=== PATIENT | female | born 1965 | race Caucasian/White ===

== ENCOUNTER → 2020-10-31 10:00 | Outpatient (CLI) | payer OTHER, SELFPAY ==
[2020-10-31 10:34] LABS: Add Manual Diff / Slide Review NO; Basophils Absolute Auto 100 /uL (0-100); Eosinophils Absolute Auto 100 /uL (0-450); Eosinophils Percent Auto 1.9 % (2-4); Hematocrit 40.4 % (36-46); Hemoglobin 13.9 g/dL (12.0-16.0); Lymphocytes Absolute Auto 1700 /uL (1100-4500); Lymphocytes Percent Auto 24.6 % (25-40); Mean Corpuscular HGB Conc 34.4 % (30-36); Mean Corpuscular Hemoglobin 32.4 PG (26-34); Mean Corpuscular Volume 94.2 fL (80-100); Monocytes Absolute Auto 500 /uL (0-900); Neutrophils Absolute Auto 4600 /uL (1500-7000); Neutrophils Percent Auto 65.5 % (50-75); Platelet Count 297 X10^3/uL (150-400); Red Blood Cell Count 4.28 X10^6/uL (4.0-5.2); Red Cell Distribution Width 12.4 % (11.6-14.8)
[2020-10-31 11:07] LABS: Blood Urea Nitrogen 15 mg/dL (7-17); Calcium 9.2 mg/dL (8.4-10.2); Carbon Dioxide 31 mmol/L (22-32); Chloride 106 mmol/L (98-107); Cholesterol 217 mg/dL (140-199); Estimated Glomerular Filt Rate > 60.0 mL/min (>60); Glucose 96 mg/dL (70-100); HDL Cholesterol 50 mg/dL (40-60); HEMOLYSIS < 15 (0-50); LDL Cholesterol Calculated 134 mg/dL (<100); Potassium 4.3 mmol/L (3.4-5.1); Sodium 141 mmol/L (137-145); Triglycerides 166 mg/dL (35-150)
[2020-10-31 11:17] LABS: Vitamin D 25 Hydroxy (D3) 69.4 ng/mL (30.0-100.0)
[2020-10-31 11:18] LABS: Free T3, Triiodothyronine Free 3.18 pg/mL (2.77-5.27); Free T4, Direct Thyroxine 0.87 ng/dL (0.78-2.19)
[2020-10-31 11:32] LABS: Thyroid Stimulating Hormone 1.85 uIU/mL (0.47-4.68)
== END ==
PROVIDERS: PCP Family Medicine; Referring Provider Family Medicine; Visit Provider Family Medicine
DX: E03.9 Hypothyroidism, unspecified (principal); E55.9 Vitamin D deficiency, unspecified; Z12.39 Encounter for other screening for malignant neoplasm of breast; Z13.220 Encounter for screening for lipoid disorders
CPT/HCPCS: 36415; 80048; 80061; 82306; 84439; 84443; 84481; 85025

== ENCOUNTER → 2021-03-30 09:50 | Outpatient (CLI) | payer OTHER, SELFPAY ==
[2021-03-30 12:25] LABS: COVID19 -Nasal RAPID Negative (Negative)
== END ==
PROVIDERS: PCP Family Medicine; Visit Provider Surgery
DX: Z01.812 Encounter for preprocedural laboratory examination (principal); Z20.822 Contact with and (suspected) exposure to COVID-19
CPT/HCPCS: 87635; C9803

== ENCOUNTER 2021-03-31 08:10 | Day surgery (SDC) | payer OTHER, SELFPAY ==
[2021-03-27 14:44] VITALS: BMI 35.2
[2021-03-31] VITALS (9 sets, daily range): BP systolic 118–136; BP diastolic 74–84; PULSE 61–85; RESP 10–16; TEMP 36.5–36.6; O2SAT 95–100; BMI 35.2
--- NOTE | 2021-03-31 08:47 | PM.HP.1 ---
History of Present Illness History of Present Illness Date Patient Seen: 03/31/21 Time Patient Seen: 08:47 Chief complaint: EXCISIONAL HEMORRHOIDECTOMY Narrative: 55-year-old healthy female here for excisional hemorrhoidectomy today. No interval changes in health. Patient History Medical History Actinic keratoses Chicken pox (~1989) Depression (~1982) Eczema of both external ears Hot flashes Hyperlipidemia, mixed Hypothyroidism (acquired) (~2019) Internal hemorrhoid Kidney stones (~1989) Physical exam Screening for breast cancer Vitamin D deficiency Surgical History Anesthesia History of bilateral breast reduction surgery (~2014) History of hysterectomy (~2013) Status post excision of lipoma (~2009) Family & Social History Family History Father History of heart disease Mother Hyperlipidemia Grandfather Cancer Social History: household members spouse,family Tobacco & Substance use: Smoking Status Never smoker alcohol intake never Substance Use Type marijuana Meds Home Medications and Allergies Home Medications Medication Instructions Recorded Confirmed Type cetirizine 10 mg tablet 10 mg PO DAILY 10/31/20 03/31/21 History fluorouracil 5 % topical cream 1 applic TOPICAL BID #40 g 10/31/20 03/27/21 Rx ibuprofen 400 mg tablet 400 mg PO Q8H PRN 10/31/20 03/27/21 History multivitamin 1 tab PO DAILY 10/31/20 03/31/21 History probiotics 1 tab PO DAILY 10/31/20 03/31/21 History ciprofloxacin 0.3 %-dexamethasone 4 drp OTIC (EAR) BID #7.5 ml 11/04/20 03/31/21 Rx 0.1 % ear drops,suspension venlafaxine 75 mg capsule,extended 75 mg PO DAILY #90 cap 01/02/21 03/31/21 Rx release 24 hr thyroid (pork) 30 mg tablet 45 mg PO DAILY #135 tab 02/26/21 03/31/21 Rx zolpidem 10 mg tablet 10 mg PO BEDTIME PRN #30 tab 02/26/21 03/27/21 Rx Allergies Allergy/AdvReac Type Severity Reaction Status Date / Time oxycodone [From Percocet] AdvReac Nausea Verified 03/31/21 08:24 Review of Systems Review of Systems ROS: Yes All systems reviewed with the patient and are negative except as otherwise documented Exam Vital Signs (past 8 hours): - 03/31/21 08:38 Temperature 97.7 F Pulse Rate 61 Respiratory Rate 16 Blood Pressure 126/83 Pulse Oximetry 98 Oxygen Delivery Method Room Air Oxygen Flow Rate 0 Narrative Exam Narrative: GENERAL-well developed adult woman, no acute distress HEENT-no scleral icterus, hearing intact NECK-no JVD, trachea midline CVS- regular rate, no peripheral edema RESP-unlabored respiratory effort, no audible wheezing GI-soft, nontender nondistended MSK-no cyanosis or clubbing, extremities without deformity SKIN-warm, dry NEURO-alert and oriented, no focal deficits PYSCH-Appropriate mood and affect Assessment & Plan Assessment & Plan narrative: 55-year-old healthy woman here for excisional hemorrhoidectomy. Technical details of the procedure were again discussed with the patient. Operative risks including bleeding, infection, incontinence, recurrence, pain were discussed. Her questions have been answered and she is in agreement with this plan.
[2021-03-31] MEDS: LACTATED RINGERS 1,000 ML 100 ML IV (08:49)
--- NOTE | 2021-03-31 09:30 | SUR.OPER ---
Prone on padded OR bed, head in foam head support, gel chest rolls, gel pad under knees, pillow under lower legs, toes free of pressure, arms secured on padded arm boards at <90 degrees abduction. Safety belt at thigh.
[2021-03-31] MEDS: BUPIVACAINE LIPOSOME 266 MG/20 ML VIAL INJ (09:34)
[2021-03-31] MEDS: BUPIVACAINE 0.25% (PF) VIAL 30 ML INJ (09:34)
[2021-03-31] MEDS: DIBUCAINE 1% OINT 28 GM 1 APPLIC TOP (09:35)
--- NOTE | 2021-03-31 09:57 | PM.OP.1 ---
Operative Date/Time/Diagnoses Date of procedure: 03/31/21 Time of procedure: 09:57 Pre-op diagnosis: Prolapsing internal hemorrhoids Post-op diagnosis: same Procedure & Clinicians Procedure: Excisional hemorrhoidectomy Same procedure as scheduled: Yes Indications: Prolapsing internal hemorrhoids Surgeon: Carroll Quesada Click Yes if Unassisted: Yes Anesthesia Type: General Operative Notes Findings: Right anterior grade 2 internal hemorrhoid with external component Specimen(s): none sent Estimated Blood Loss (mL): 20 Procedure in detail: The patient was brought to the operating room placed supine on the table. Bilateral lower extremity compression devices were applied. General anesthesia was induced and they were intubated with an endotracheal tube. They were then placed into prone position and appropriately padded. They were then prepped and draped in usual sterile fashion. Time-out was performed. Rectal block was performed by injecting 20 mL of Exparel into the intersphincteric groove. An internal examination of the anal canal was made. The right anterior hemorrhoid pedicle freely prolapse and had an external component to it as well. The remaining tissue within the anal canal was unremarkable. The right anterior pedicle was grasped elevated and excised with electrocautery off the internal sphincter. The vascular pedicle was ligated and the mucosal defect was closed using 0 Vicryl suture. Hemostasis was checked. Wound was irrigated with saline. Gelfoam coated in Dibucaine ointment 1% was then placed into the anal canal. Sponge and instrument counts were correct at the end of the procedure. They emerged from anesthesia were extubated and transferred to the postoperative care unit in stable condition. Complications: none Post-operative Condition: stable Disposition: same day surgery
[2021-03-31] MEDS: HYDROCODONE/ACET 5/325 TABLET 1 TAB PO (10:11)
[2021-03-31] MEDS: ONDANSETRON 4 MG/2 ML INJ IV (10:11)
== END 2021-03-31 10:42 | disposition home or self-care (01) ==
PROVIDERS: PCP Family Medicine; Referring Provider Surgery; Visit Provider Surgery
PROC: (CPT 46255; principal; 2021-03-31 09:15)
DX: K64.8 Other hemorrhoids (principal); E03.9 Hypothyroidism, unspecified; E78.2 Mixed hyperlipidemia
CPT/HCPCS: 46255; C9290; J1100; J2250; J2405; J2704; J3010

== ENCOUNTER → 2021-04-07 16:14 | Outpatient (CLI) | payer OTHER, SELFPAY ==
[2021-04-07 18:19] LABS: Free T3, Triiodothyronine Free 6.78 pg/mL (2.77-5.27); Free T4, Direct Thyroxine 1.26 ng/dL (0.78-2.19)
[2021-04-07 18:33] LABS: Thyroid Stimulating Hormone 0.506 uIU/mL (0.47-4.68)
== END ==
PROVIDERS: PCP Family Medicine; Referring Provider Family Medicine; Visit Provider Family Medicine
DX: E03.9 Hypothyroidism, unspecified (principal); Z51.81 Encounter for therapeutic drug level monitoring
CPT/HCPCS: 36415; 84439; 84443; 84481

== ENCOUNTER → 2021-06-30 16:10 | Outpatient (CLI) | payer OTHER, SELFPAY ==
[2021-06-30 17:10] LABS: Free T3, Triiodothyronine Free 4.74 pg/mL (2.77-5.27)
[2021-06-30 17:23] LABS: Thyroid Stimulating Hormone 0.982 uIU/mL (0.47-4.68)
== END ==
PROVIDERS: PCP Family Medicine; Referring Provider Family Medicine; Visit Provider Family Medicine
DX: E03.9 Hypothyroidism, unspecified (principal)
CPT/HCPCS: 36415; 84439; 84443; 84481

== ENCOUNTER → 2021-09-25 17:10 | Outpatient (CLI) | payer OTHER, SELFPAY ==
--- NOTE | 2021-09-25 17:11 | DI.MG.S_ITS ---
BILATERAL DIGITAL SCREENING MAMMOGRAM 3D/2D WITH CAD: 09/25/2021 CLINICAL: Routine screening. Comparison is made to exams dated: 04/21/2020 mammogram, 06/28/2013 mammogram, and 06/07/2013 mammogram - [facility]. There are scattered fibroglandular elements in both breasts. Current study was also evaluated with a Computer Aided Detection (CAD) system. There are benign calcifications in both breasts. There also are benign post operative findings in both breasts. No significant masses, calcifications, or other findings are seen in either breast. There has been no significant interval change. IMPRESSION: BENIGN There is no mammographic evidence of malignancy. A 1 year screening mammogram is recommended. This exam was interpreted at Station ID: [id number]. NOTE: For mammograms, a report in lay terms will be sent to the patient. Approximately 15% of breast malignancies will not be visualized mammographically. In the management of a palpable breast mass, a negative mammogram must not discourage biopsy of a clinically suspicious lesion. Electronically Signed By: Aravind hylton/beth:09/28/2021 08:08:42 letter sent: Normal Exam ACR BI-RADS Category 2: Benign Finding(s) 3342F
== END ==
PROVIDERS: PCP Family Medicine; Referring Provider Family Medicine; Visit Provider Family Medicine
DX: Z12.31 Encounter for screening mammogram for malignant neoplasm of breast (principal)
CPT/HCPCS: 77063; 77067

== ENCOUNTER → 2021-12-31 10:25 | Outpatient (CLI) | payer OTHER, SELFPAY ==
[2021-12-31 11:34] LABS: Free T3, Triiodothyronine Free 4.51 pg/mL (2.77-5.27); Free T4, Direct Thyroxine 0.99 ng/dL (0.78-2.19)
[2021-12-31 11:48] LABS: Thyroid Stimulating Hormone 1.06 uIU/mL (0.47-4.68)
== END ==
PROVIDERS: PCP Family Medicine; Referring Provider Family Medicine; Visit Provider Family Medicine
DX: E03.9 Hypothyroidism, unspecified (principal)
CPT/HCPCS: 36415; 84439; 84443; 84481

== ENCOUNTER → 2022-09-13 12:35 | Outpatient (CLI) | payer OTHER, SELFPAY ==
[2022-09-13 13:38] LABS: Add Manual Diff / Slide Review NO; Basophils Absolute Auto 100 /uL (0-100); Eosinophils Absolute Auto 200 /uL (0-450); Eosinophils Percent Auto 2.2 % (2-4); Hematocrit 41.3 % (36-46); Hemoglobin 14.3 g/dL (12.0-16.0); Lymphocytes Absolute Auto 2100 /uL (1100-4500); Lymphocytes Percent Auto 27.7 % (25-40); Mean Corpuscular HGB Conc 34.6 % (30-36); Mean Corpuscular Hemoglobin 32.6 PG (26-34); Mean Corpuscular Volume 94.1 fL (80-100); Monocytes Absolute Auto 500 /uL (0-900); Monocytes Percent Auto 6.1 % (3-14); Neutrophils Absolute Auto 4800 /uL (1500-7000); Platelet Count 307 X10^3/uL (150-400); Red Blood Cell Count 4.39 X10^6/uL (4.0-5.2); Red Cell Distribution Width 12.5 % (11.6-14.8); White Blood Cell Count 7.6 X10^3/uL (4.5-11.0)
[2022-09-13 14:14] LABS: Alanine Aminotransferase 16 IU/L (<35); Albumin 4.4 g/dL (3.5-5.0); Albumin Globulin Ratio 1.3 (1.0-2.8); Alkaline Phosphatase 84 U/L (38-126); Aspartate Aminotransferase 25 IU/L (14-36); BUN Creatinine Ratio 18.9 (6-22); Bilirubin Total 0.5 mg/dL (0.2-1.3); Blood Urea Nitrogen 14 mg/dL (7-17); Calcium 9.3 mg/dL (8.4-10.2); Carbon Dioxide 29 mmol/L (22-32); Chloride 101 mmol/L (98-107); Cholesterol 220 mg/dL (140-199); Estimated Glomerular Filt Rate > 60 mL/min (>60); Globulin 3.5 g/dL (1.7-4.1); Glucose 85 mg/dL (70-100); HDL Cholesterol 51 mg/dL (40-60); HEMOLYSIS < 15 (0-50); LDL Cholesterol Calculated 128 mg/dL (<100); Potassium 3.8 mmol/L (3.4-5.1); Sodium 140 mmol/L (137-145); Total Protein 7.9 g/dL (6.3-8.2); Triglycerides 206 mg/dL (35-150)
[2022-09-13 14:26] LABS: Free T3, Triiodothyronine Free 4.29 pg/mL (2.77-5.27); Free T4, Direct Thyroxine 0.98 ng/dL (0.78-2.19)
[2022-09-13 14:39] LABS: Thyroid Stimulating Hormone 0.902 uIU/mL (0.47-4.68)
== END ==
PROVIDERS: PCP Family Medicine; Referring Provider Family Medicine; Visit Provider Family Medicine
DX: E03.9 Hypothyroidism, unspecified (principal); E78.2 Mixed hyperlipidemia
CPT/HCPCS: 36415; 80053; 80061; 84439; 84443; 84481; 85025

== ENCOUNTER → 2022-11-24 16:09 | Outpatient (CLI) | payer OTHER, SELFPAY ==
--- NOTE | 2022-11-24 16:10 | DI.MG.S_ITS ---
BILATERAL DIGITAL SCREENING MAMMOGRAM 3D/2D WITH CAD: 11/24/2022 CLINICAL: Routine screening. Comparison is made to exams dated: 04/21/2020 mammogram, 06/28/2013 mammogram - [facility], and 09/25/2021 mammogram - [facility]. There are scattered areas of fibroglandular density in both breasts (category b / 25%-50% glandular tissue). Current study was also evaluated with a Computer Aided Detection (CAD) system. There are benign calcifications in both breasts. There also are benign post operative findings in both breasts. No significant masses, calcifications, or other findings are seen in either breast. There has been no significant interval change. IMPRESSION: BENIGN There is no mammographic evidence of malignancy. A 1 year screening mammogram is recommended. Based on the Tyrer Cuzick model (a risk assessment model) the patient's lifetime risk is 6.0% and her 10 year risk is 1.8%. According to the ACR, ACS, and NCCN guidelines, an annual breast MRI exam along with mammogram is recommended if the patient's lifetime risk is 20% or greater. This exam was interpreted at Station ID: [id number]. NOTE: For mammograms, a report in lay terms will be sent to the patient. Approximately 15% of breast malignancies will not be visualized mammographically. In the management of a palpable breast mass, a negative mammogram must not discourage biopsy of a clinically suspicious lesion. Electronically Signed By: William León M.D., jr/beth:11/25/2022 11:32:40 letter sent: Normal Exam ACR BI-RADS Category 2: Benign Finding(s) 3342F
== END ==
PROVIDERS: PCP Family Medicine; Referring Provider Family Medicine; Visit Provider Family Medicine
DX: Z12.31 Encounter for screening mammogram for malignant neoplasm of breast (principal)
CPT/HCPCS: 77063; 77067

== ENCOUNTER 2023-01-11 07:13 | Day surgery (SDC) | payer OTHER, SELFPAY ==
--- NOTE | 2023-01-11 | PATH_ITS ---
[facility] Accession Number: [id number] No. of containers..01 Tissue . 01 Material submitted: . colon - TRANSVERSE COLON POLYP . 01 Diagnosis: Transverse Colon, Polyp, Biopsy: Colonic mucosa with no diagnostic abnormality, consistent with polypoid redundancy. Additional levels were examined. Negative for dysplasia and malignancy. [facility] 01/18/2023 1154 Local . 01 Electronically signed: . Nida Lebron MD, Pathologist NPI- [id number] . 01 Gross description: . TRANSVERSE COLON POLYP: Received in formalin is 1 fragment(s) of chau, soft tissue measuring 0.2 x 0.1 x 0.1 cm submitted entirely in 1 cassette(s) /ANNA 01/12/2023 2241 Local . 01 Pathologist provided ICD-10: K63.5 . 01 CPT . 426052 Specimen Comment: A courtesy copy of this report has been sent to [phone] Performed at: 01 [facility] [address] [place] [address] [address], [place], [place] [id number] MD Aravind Rosas MD Phone: [phone]
[2023-01-11 07:40] VITALS: BMI 35.4
[2023-01-11 07:44] VITALS: BP 124/77; PULSE 61; RESP 12; TEMP 36.6; O2SAT 98
[2023-01-11] MEDS: LACTATED RINGERS 1,000 ML 200 ML IV (07:53)
--- NOTE | 2023-01-11 08:29 | PM.HP.1 ---
History of Present Illness History of Present Illness Date Patient Seen: 01/11/23 Time Patient Seen: 08:29 Chief complaint: Screening Colonoscopy w/Hemorrhoid Banding Narrative: 57-year-old woman here for screening colonoscopy hemorrhoidal banding. No interval changes in health. Please refer to the H and P from November 2022 for further detail. Patient History Medical History Actinic keratoses Chicken pox (~1989) Depression (~1982) Eczema of both external ears Hot flashes Hyperlipidemia, mixed Hypothyroidism (acquired) (~2019) Insomnia Internal and external hemorrhoids without complication Internal hemorrhoid Kidney stones (~1989) Physical exam Screening for breast cancer Skin texture changes Vitamin D deficiency Surgical History Anesthesia History of bilateral breast reduction surgery (~2014) History of hysterectomy (~2013) Status post excision of lipoma (~2009) Family & Social History Family History Father History of heart disease Mother Hyperlipidemia Grandfather Cancer Social History: household members spouse,family lives independently Yes Tobacco & Substance use: Smoking Status Never smoker alcohol intake never Substance Use Type marijuana Meds Home Medications and Allergies Home Medications Medication Instructions Recorded Confirmed Type cetirizine 10 mg tablet (Zyrtec) 10 mg PO DAILY 10/31/20 01/11/23 History ibuprofen 400 mg tablet 400 mg PO Q8H PRN Pain (Scale 10/31/20 01/11/23 History Score 1-3) multivitamin 1 tab PO DAILY 10/31/20 11/26/22 History probiotics 1 tab PO DAILY 10/31/20 11/26/22 History ciprofloxacin 0.3 %-dexamethasone 4 drp otic (ear) BID #7.5 mL 01/07/22 01/11/23 Rx 0.1 % ear drops,suspension (Ciprodex) thyroid (pork) 30 mg tablet See Rx Instructions .Route 03/10/22 01/11/23 Rx ([place] [facility]) .COMPLEX #135 tabs zolpidem 10 mg tablet (Ambien) 10 mg PO BEDTIME PRN insomnia #30 07/31/22 01/11/23 Rx tabs sertraline 50 mg tablet See Rx Instructions .Route 09/17/22 01/11/23 Rx .COMPLEX #90 tabs psyllium husk 3.4 gram/5.4 gram 1 tbsp PO DAILY 01/11/23 01/11/23 History oral powder (Metamucil) Allergies Allergy/AdvReac Type Severity Reaction Status Date / Time oxycodone [From Percocet] AdvReac Nausea Verified 01/11/23 07:37 Exam Vital Signs (past 8 hours): - 01/11/23 07:44 Temperature 97.8 F Pulse Rate 61 Respiratory Rate 12 Blood Pressure 124/77 Pulse Oximetry 98 Oxygen Delivery Method Room Air Oxygen Delivery Method Room Air Narrative Exam Narrative: General adult woman alert oriented no acute distress Assessment & Plan Assessment & Plan narrative: The patient requires colorectal screening and colonoscopy is recommended, we will plan for internal hemorrhoidal banding concurrently.. Technical details were discussed. Risks, benefits, alternatives explained. Risks including but not limited to myocardial infarction, aspiration, bleeding, pain, missed lesion, incomplete examination, need for further radiographic studies, colonic perforation, and need for major abdominal surgery were discussed. All questions were answered to their satisfaction, and they are in agreement with this plan. Time Spent With Patient Critical Care time: I spent a total of [] minutes of critical care time on this patient's care today; this time is exclusive of procedural time.
--- NOTE | 2023-01-11 08:31 | P.OP.COLON_ITS ---
Operative Date/Time/Diagnoses Date of procedure: 01/11/23 Time of procedure: 08:31 Pre-op diagnosis: Colorectal screening, internal hemorrhoid Post-op diagnosis: same Procedure & Clinicians Study performed: Colonoscopy Hemorrhoidal banding Same procedure as scheduled: Yes Indications: Colorectal screening, internal hemorrhoids Surgeon: Carroll Quesada Procedure Notes Procedure in detail: The history and physical was performed/updated and the patient is ASA class is2 The procedure was discussed in detail with the patient. Potential risks complications including infection, bleeding, missed diagnosis, perforation, need for surgery, and were explained. Their questions were answered and informed consent was obtained. Patient was brought to the procedure room and placed standard monitoring equipment. The patient's vital signs were monitored continuously throughout the entire procedure. Prior to starting time-out was performed. The patient was placed in the left lateral recumbent position. Procedural sedation was administ ered by anesthesia. Examination began with a thorough inspection of the perianal area there was no evidence of fissures, fistulae, external hemorrhoids or cutaneous malignancy. The colonoscopy scope was then placed into the anal canal and was advanced to the cecum, which was identified by the ileocecal valve, the appendiceal orifice and the confluence of the taenia. The scope was then slowly withdrawn examining colon thoroughly in all directions, irrigating it of any residual stool. Within the transverse colon there was a 3 mm polyp which was removed with biopsy forceps. Rectum demonstrated grade 1-2 internal hemorrhoids. The right posterior and the left lateral hemorrhoidal columns were grasped with suction and then doubly ligated at their base. She tolerated the hemorrhoidal banding well without issue. The patient tolerated the procedure well. They will be discharged once criteria are met. The prep was of good/excellent quality. The withdrawl time was 6 minutes. Specimen(s): other (Transverse colonic polyp) Impression: Colonic polyp Post-procedure Recommendations: High fiber diet and Start medication(s) (Colace for 2 weeks) Plan for aftercare: Follow-up is dependent on pathology findings Disposition: same day surgery
[2023-01-11 09:04] VITALS: BP 142/91; PULSE 61; RESP 15; TEMP 36.2; O2SAT 97
[2023-01-11 09:10] VITALS: BP 143/82; PULSE 87; RESP 18; TEMP 36.3; O2SAT 97
[2023-01-11 09:14] VITALS: BP 145/83; PULSE 75; RESP 18; TEMP 36.3; O2SAT 98
== END 2023-01-11 09:20 | disposition home or self-care (01) ==
PROVIDERS: PCP Family Medicine; Referring Provider Surgery; Visit Provider Surgery
PROC: 0DJD8ZZ Inspection of Lower Intestinal Tract, Via Natural or Artificial Opening Endoscopic (ICD-10-PCS; CPT 45378; principal; 2023-01-11 08:15)
DX: Z12.11 Encounter for screening for malignant neoplasm of colon (principal); K64.1 Second degree hemorrhoids
CPT/HCPCS: 45380; 46221; 45398; J2704; J3010

== ENCOUNTER → 2023-09-26 07:46 | Outpatient (CLI) | payer OTHER, SELFPAY ==
[2023-09-26 08:32] LABS: Add Manual Diff / Slide Review NO; Basophils Absolute Auto 100 /uL (0-100); Basophils Percent Auto 1.2 % (0-2); Eosinophils Absolute Auto 200 /uL (0-450); Eosinophils Percent Auto 2.7 % (2-4); Hematocrit 40.3 % (36-46); Hemoglobin 13.9 g/dL (12.0-16.0); Lymphocytes Absolute Auto 1400 /uL (1100-4500); Lymphocytes Percent Auto 20.5 % (25-40); Mean Corpuscular HGB Conc 34.5 % (30-36); Mean Corpuscular Hemoglobin 32.2 PG (26-34); Mean Corpuscular Volume 93.5 fL (80-100); Monocytes Absolute Auto 500 /uL (0-900); Monocytes Percent Auto 7.3 % (3-14); Neutrophils Absolute Auto 4700 /uL (1500-7000); Neutrophils Percent Auto 68.3 % (50-75); Platelet Count 328 X10^3/uL (150-400); Red Cell Distribution Width 12.4 % (11.6-14.8); White Blood Cell Count 6.9 X10^3/uL (4.5-11.0)
[2023-09-26 08:47] LABS: Alanine Aminotransferase 13 IU/L (<35); Albumin 4.1 g/dL (3.5-5.0); Albumin Globulin Ratio 1.6 (1.0-2.8); Alkaline Phosphatase 60 U/L (38-126); Aspartate Aminotransferase 23 IU/L (14-36); Bilirubin Total 0.4 mg/dL (0.2-1.3); Blood Urea Nitrogen 12 mg/dL (7-17); Calcium 9.6 mg/dL (8.4-10.2); Carbon Dioxide 29 mmol/L (22-32); Chloride 103 mmol/L (98-107); Cholesterol 193 mg/dL (140-199); Estimated Glomerular Filt Rate > 60 mL/min (>60); Globulin 2.6 g/dL (1.7-4.1); Glucose 92 mg/dL (70-100); HDL Cholesterol 57 mg/dL (40-60); HEMOLYSIS < 15 (0-50); LDL Cholesterol Calculated 109 mg/dL (<100); Potassium 4.7 mmol/L (3.4-5.1); Sodium 137 mmol/L (137-145); Total Protein 6.7 g/dL (6.3-8.2); Triglycerides 137 mg/dL (35-150)
[2023-09-26 09:08] LABS: TSH w/ Reflex to FT4 1.28 uIU/mL (0.47-4.68)
[2023-09-26 09:33] LABS: Vitamin B12 985 pg/mL (239-931)
== END ==
PROVIDERS: PCP Family Medicine; Referring Provider Family Medicine; Visit Provider Family Medicine
DX: E78.2 Mixed hyperlipidemia (principal); E03.9 Hypothyroidism, unspecified; F32.9 Major depressive disorder, single episode, unspecified
CPT/HCPCS: 36415; 80053; 80061; 82607; 84443; 85025

== ENCOUNTER → 2024-10-10 07:35 | Outpatient (CLI) | payer OTHER, SELFPAY ==
[2024-10-10 08:53] LABS: Add Manual Diff / Slide Review NO; Basophils Absolute Auto 100 /uL (0-100); Basophils Percent Auto 1.2 % (0-2); Eosinophils Absolute Auto 200 /uL (0-450); Eosinophils Percent Auto 2.8 % (2-4); Hematocrit 40.2 % (36-46); Hemoglobin 13.8 g/dL (12.0-16.0); Lymphocytes Absolute Auto 1600 /uL (1100-4500); Lymphocytes Percent Auto 20.1 % (25-40); Mean Corpuscular HGB Conc 34.4 % (30-36); Mean Corpuscular Hemoglobin 32.8 PG (26-34); Mean Corpuscular Volume 95.2 fL (80-100); Monocytes Absolute Auto 500 /uL (0-900); Monocytes Percent Auto 6.1 % (3-14); Neutrophils Absolute Auto 5500 /uL (1500-7000); Neutrophils Percent Auto 69.8 % (50-75); Platelet Count 358 X10^3/uL (150-400); Red Blood Cell Count 4.22 X10^6/uL (4.0-5.2); Red Cell Distribution Width 12.4 % (11.6-14.8); White Blood Cell Count 7.9 X10^3/uL (4.5-11.0)
[2024-10-10 09:24] LABS: Alanine Aminotransferase 15 IU/L (<35); Albumin 4.3 g/dL (3.5-5.0); Albumin Globulin Ratio 1.7 (1.0-2.8); Alkaline Phosphatase 65 U/L (38-126); Aspartate Aminotransferase 25 IU/L (14-36); BUN Creatinine Ratio 17.6 (6-22); Bilirubin Total 0.6 mg/dL (0.2-1.3); Blood Urea Nitrogen 15 mg/dL (7-17); Calcium 9.4 mg/dL (8.4-10.2); Carbon Dioxide 26 mmol/L (22-32); Chloride 105 mmol/L (98-107); Cholesterol 248 mg/dL (140-199); Estimated Glomerular Filt Rate > 60 mL/min (>60); Globulin 2.6 g/dL (1.7-4.1); Glucose 90 mg/dL (70-100); HDL Cholesterol 58 mg/dL (40-60); HEMOLYSIS < 15 (0-50); LDL Cholesterol Calculated 155 mg/dL (<100); Potassium 4.2 mmol/L (3.4-5.1); Sodium 138 mmol/L (137-145); Total Protein 6.9 g/dL (6.3-8.2); Triglycerides 176 mg/dL (35-150)
[2024-10-10 09:34] LABS: Vitamin D 25 Hydroxy (D3) 59.7 ng/mL (30.0-100.0)
[2024-10-10 09:53] LABS: TSH w/ Reflex to FT4 2.11 uIU/mL (0.47-4.68)
== END ==
LOC: LAB 07:35
PROVIDERS: PCP Family Medicine; Referring Provider Family Medicine; Visit Provider Family Medicine
DX: E03.9 Hypothyroidism, unspecified (principal); E55.9 Vitamin D deficiency, unspecified; E78.2 Mixed hyperlipidemia; F32.5 Major depressive disorder, single episode, in full remission; F51.01 Primary insomnia
CPT/HCPCS: 36415; 80053; 80061; 82306; 84443; 85025

== ENCOUNTER → 2024-11-28 07:39 | Outpatient (CLI) | payer OTHER, SELFPAY ==
[2024-11-28 08:25] LABS: Add Manual Diff / Slide Review NO; Basophils Absolute Auto 100 /uL (0-100); Eosinophils Absolute Auto 100 /uL (0-450); Eosinophils Percent Auto 1.1 % (2-4); Hematocrit 41.6 % (36-46); Hemoglobin 14.4 g/dL (12.0-16.0); Lymphocytes Absolute Auto 1600 /uL (1100-4500); Lymphocytes Percent Auto 19.3 % (25-40); Mean Corpuscular HGB Conc 34.5 % (30-36); Mean Corpuscular Hemoglobin 32.7 PG (26-34); Mean Corpuscular Volume 94.7 fL (80-100); Monocytes Absolute Auto 700 /uL (0-900); Monocytes Percent Auto 8.6 % (3-14); Neutrophils Absolute Auto 5600 /uL (1500-7000); Platelet Count 397 X10^3/uL (150-400); Red Blood Cell Count 4.39 X10^6/uL (4.0-5.2); Red Cell Distribution Width 12.4 % (11.6-14.8)
[2024-11-28 08:49] LABS: Alanine Aminotransferase 12 IU/L (<35); Albumin 4.6 g/dL (3.5-5.0); Albumin Globulin Ratio 1.9 (1.0-2.8); Alkaline Phosphatase 53 U/L (38-126); Aspartate Aminotransferase 28 IU/L (14-36); BUN Creatinine Ratio 19.4 (6-22); Bilirubin Total 0.7 mg/dL (0.2-1.3); Blood Urea Nitrogen 19 mg/dL (7-17); Calcium 9.8 mg/dL (8.4-10.2); Carbon Dioxide 27 mmol/L (22-32); Chloride 103 mmol/L (98-107); Cholesterol 203 mg/dL (140-199); Estimated Glomerular Filt Rate > 60 mL/min (>60); Globulin 2.4 g/dL (1.7-4.1); Glucose 88 mg/dL (70-100); HDL Cholesterol 58 mg/dL (40-60); HEMOLYSIS < 15 (0-50); LDL Cholesterol Calculated 130 mg/dL (<100); Potassium 4.4 mmol/L (3.4-5.1); Sodium 138 mmol/L (137-145); Triglycerides 74 mg/dL (35-150)
[2024-11-28 09:16] LABS: TSH w/ Reflex to FT4 1.28 uIU/mL (0.47-4.68)
== END ==
PROVIDERS: PCP Family Medicine; Referring Provider Family Medicine; Visit Provider Family Medicine
DX: E78.2 Mixed hyperlipidemia (principal); E03.9 Hypothyroidism, unspecified; Z68.31 Body mass index [BMI] 31.0-31.9, adult
CPT/HCPCS: 36415; 80053; 80061; 84443; 85025

== ENCOUNTER → 2025-01-05 08:24 | Outpatient (CLI) | payer OTHER, SELFPAY ==
--- NOTE | 2025-01-05 | DI.MG.S_ITS ---
BILATERAL DIGITAL SCREENING MAMMOGRAM 3D/2D WITH CAD: 01/05/2025 CLINICAL: Routine screening. Comparison is made to exams dated: 11/24/2022 mammogram, 09/25/2021 mammogram - [facility], and 04/21/2020 mammogram - [facility]. The breasts are almost entirely fatty (category a/<25% glandular tissue). Current study was also evaluated with a Computer Aided Detection (CAD) system. There is a new round equal density focal asymmetry in the right breast at 12 o'clock anterior depth. No other significant masses, calcifications, or other findings are seen in either breast. IMPRESSION: INCOMPLETE: NEED ADDITIONAL IMAGING EVALUATION The new round equal density focal asymmetry in the right breast is indeterminate. Additional views with possible ultrasound are recommended. Based on the Tyrer Cuzick model (a risk assessment model) the patient's lifetime risk is 4.0% and her 10 year risk is 1.3%. According to the ACR, ACS, and NCCN guidelines, an annual breast MRI exam along with mammogram is recommended if the patient's lifetime risk is 20% or greater. This exam was interpreted at Station ID: [id number]. NOTE: For mammograms, a report in lay terms will be sent to the patient. Approximately 15% of breast malignancies will not be visualized mammographically. In the management of a palpable breast mass, a negative mammogram must not discourage biopsy of a clinically suspicious lesion. Electronically Signed By: Jes lorenzo/beth:01/07/2025 16:48:33 letter sent: Additional Imaging Needed ACR BI-RADS Category 0: Incomplete: Need Additional Imaging Evaluation
== END ==
PROVIDERS: PCP Family Medicine; Referring Provider Family Medicine; Visit Provider Family Medicine
DX: Z12.31 Encounter for screening mammogram for malignant neoplasm of breast (principal); R92.313 Mammographic fatty tissue density, bilateral breasts
CPT/HCPCS: 77063; 77067

== ENCOUNTER → 2025-02-05 09:19 | Outpatient (CLI) | payer OTHER, SELFPAY ==
--- NOTE | 2025-02-05 09:19 | DI.US.S_ITS ---
MM diagnostic mammo unilat RT, US breast RT limited: 02/05/2025 BI-RADS: 4 CLINICAL: 59-year old female for right diagnostic mammogram and right diagnostic breast ultrasound that is a recall from screening, bilateral, digital, tomosynthesis, w/mammo cad on 01/05/2025. [facility] lifetime risk of 4.4%. No personal or first-degree family history of breast cancer. The patient is status-post reduction mammoplasty. PRIOR EXAMS 01/05/2025, 11/24/2022, 09/25/2021, 04/21/2020. MAMMOGRAPHY TECHNIQUE: 2D and 3D (tomosynthesis) digital mammographic views obtained, with additional images as needed for full coverage. Current study was also evaluated with a Computer Aided Detection (CAD) system. ULTRASOUND TECHNIQUE TARGETED Right Breast Ultrasound: Real-time ultrasound exam was performed focused to area of clinical and/or imaging concern. Right targeted breast ultrasound of the area of clinical interest and the axilla was performed with image documentation. DENSITY Right: B. There are scattered areas of fibroglandular density. MAMMOGRAPHY FINDINGS Right (finding-1): Upper at 12:00, Anterior depth, measuring 0.8 cm: Correlating with findings on screening mammogram there is an oval, high-density mass present. ULTRASOUND FINDINGS Right (finding-1): Upper at 12:00, 4 cm from nipple, measuring 0.5 x 0.4 x 0.9 cm: Correlating with findings on mammogram there is a hypoechoic mass present. Right: No abnormal lymph nodes are seen in the axilla. IMPRESSION: Right (Mass): Upper at 12:00, 4 cm from nipple, measuring 0.5 x 0.4 x 0.9 cm * Suspicious findings with likelihood of malignancy. RECOMMENDATIONS Right: Upper at 12:00, 4 cm from nipple * Ultrasound-guided biopsy for further evaluation. COMMENTS: Findings and recommendations were conveyed to the patient by Dr. Angulo on the phone during today's evaluation, prior to the patient leaving the facility. OVERALL ASSESSMENT CATEGORY BI-RADS-4: Suspicious. ELECTRONICALLY SIGNED: Trish Angulo M.D. on 02/05/2025 at 10:15:55 AM PT Interpreting Station ID: [id number]
== END ==
PROVIDERS: PCP Family Medicine; Referring Provider Family Medicine; Visit Provider Family Medicine
DX: R92.8 Other abnormal and inconclusive findings on diagnostic imaging of breast (principal); R92.2 Inconclusive mammogram; N63.15 Unspecified lump in the right breast, overlapping quadrants; N64.89 Other specified disorders of breast
CPT/HCPCS: 76642; 77065; G0279

== ENCOUNTER → 2025-02-19 11:06 | Outpatient (CLI) | payer OTHER, SELFPAY ==
[2025-02-19 12:54] LABS: Cholesterol 164 mg/dL (140-199); HDL Cholesterol 55 mg/dL (40-60); LDL Cholesterol Calculated 93 mg/dL (<100); Triglycerides 81 mg/dL (35-150)
== END ==
PROVIDERS: PCP Family Medicine; Referring Provider Family Medicine; Visit Provider Family Medicine
DX: E78.2 Mixed hyperlipidemia (principal)
CPT/HCPCS: 36415; 80061

== ENCOUNTER → 2025-03-01 | Outpatient (CLI) | payer OTHER, SELFPAY ==
--- NOTE | 2025-03-01 09:52 | DI.MG.S_ITS ---
MM diagnostic mammo [id number]: 03/01/2025. BI-RADS: None CLINICAL: 59-year old female for right diagnostic mammogram that is a recall from screening, bilateral, digital, tomosynthesis, w/mammo cad on 01/05/2025. Mammogram is performed after US guided biopsy to assess marker location. Tyrer-Cuzick lifetime risk of 4.4%. No personal or first-degree family history of breast cancer. The patient is status-post reduction mammoplasty. PRIOR EXAMS: Comparison is made with relevant prior imaging in PACS including the most recent: Mammogram(s): 02/05/2025. Breast Ultrasound(s): 02/05/2025. Four Other Exams on 01/05/2025, 11/24/2022, 09/25/2021, 04/21/2020. MAMMOGRAPHY TECHNIQUE: 2D and 3D (tomosynthesis) digital mammographic views obtained, with additional images as needed for full coverage. Current study was also evaluated with a Computer Aided Detection (CAD) system. DENSITY Right: B. There are scattered areas of fibroglandular density. MAMMOGRAPHY FINDINGS Right: Upper at 11:30, 4 cm from nipple, Anterior depth. Previous report: at 12:00: There is a (Mini Cork) biopsy marker in targeted location. IMPRESSION: Right * Biopsy marker present. OVERALL ASSESSMENT CATEGORY BI-RADS None: This exam requires no BI-RADS. ELECTRONICALLY SIGNED: Lonnie Carl MD on 03/01/2025 at 04:46:16 PM PT Interpreting Station ID: [id number]
--- NOTE | 2025-03-01 09:57 | DI.US.S_ITS ---
Patient Name: MOE LUCAS date: 1965 Sex: F Attending Physician: Tino Indications: Date: 03/06/2025 21:54 At the request of: SABINO BEE Procedure: US bx breast perc w vac device Right US bx breast perc w vac device: 03/01/2025. Rad-Path Correlation: Concordant Pathology Classification: Atypical SEE ADDENDUM AT END OF THIS REPORT SEE UPDATED PATHOLOGY AT END OF THIS REPORT CLINICAL: 59-year old female for right procedure that resulted from diagnostic mammogram on 02/05/2025. Tyrer-Cuzick lifetime risk of 4.4%. No personal or first-degree family history of breast cancer. The patient is status-post reduction mammoplasty. PRIOR EXAMS: Comparison is made with relevant prior imaging in PACS including the most recent: CONSENT Risks including but not limited to bleeding and infection, benefits and alternatives were discussed with the patient. The patients agreed to the procedure, reported no allergy to local anesthesia and signed the consent form. Risks including but not limited to bleeding and infection, benefits and alternatives were discussed with the patient. The patient agreed to the procedure and signed informed consent. Time out procedure was used. ROUTINE Right: Patient positioned in the supine or supine-oblique position, prepped and draped in the usual manner using sterile technique. TECHNIQUE Right Breast: Upper at 12:00, 4 cm from nipple: Continued Report - Page 2 of 3 Patient Name: MEO LUCAS date: 1965 Sex: F Attending Physician: Tino Indications: Date: 03/06/2025 21:54 At the request of: SABINO BEE Procedure: US bx breast perc w vac device Procedure: Ultrasound-guided vacuum-assisted biopsy of a mass with Mini Cork marker placement. Device: 14-gauge vacuum-assisted biopsy instrument. BD EleVation(TM) 14g. Approach: Lateral. Anesthesia: Local anesthesia obtained using 1%-lidocaine buffered with sodium bicarbonate. Secondary local anesthesia obtained using 1%-lidocaine with epinephrine. Skin Entry: Incision with #11 blade. Passes: 1. Specimens: 4. Targeting Confirmation: Real-time Observation and Post-Procedure Imaging. Post-procedure imaging: Post-procedure mammogram confirms the marker to be in target location. Rad/Path Correlation: Pending receipt of pathology report. Conclusion: Ultrasound-guided Vacuum-assisted biopsy with post-procedure mammogram, Right Breast: Upper at 12:00, 4 cm from nipple COMPLICATIONS: No complications were encountered while the patient was in our department. DISPOSITION The patient left our department in good condition with aftercare instructions and urged to contact us should any problem arise. SUMMARY Right Breast: Upper at 12:00, 4 cm from nipple: Ultrasound-guided vacuum- assisted biopsy of a mass with Mini Cork marker placement. PATHOLOGY Right Breast: Upper at 12:00, 4 cm from nipple: Radiologist-Pathologist Correlation: Pending receipt of pathology report. SEE UPDATED RECOMMENDATIONS IN ADDENDUM AT END OF THIS REPORT ELECTRONICALLY SIGNED: Lonnie Carl MD on 03/01/2025 at 04:44:42 PM PT ADDENDA: * ADDENDUM: This addendum is to add result of Pathology and/or to assign Concordance or Discordance to Rad-Path correlation. RAD-PATH CORRELATION: Concordant. Rad-Path Correlation changed from Pending. ELECTRONICALLY SIGNED: Ok Turpin M.D. on 03/06/2025 at 09:54:41 PM. Continued Report - Page 3 of 3 Patient Name: MOE LUCAS date: 1965 Sex: F Attending Physician: Tino Indications: Date: 03/06/2025 21:54 At the request of: SABINO BEE Procedure: US bx breast perc w vac device UPDATED PATHOLOGY Right Breast: Upper at 12:00, 4 cm from nipple: Atypical Classification: Ductal Hyperplasia (ADH). Radiologist-Pathologist Correlation: Concordant. UPDATED RECOMMENDATIONS Right * Consultation with surgeon. Appointment for this consult to be scheduled as soon as possible. Interpreting Station ID: [id number]
--- NOTE | 2025-03-01 10:59 | PATH_ITS ---
[facility] Accession Number: [id number] No. of containers..01 Tissue . 01 Material submitted: . breast - RT BREAST 12:00 4CMFN . 01 Clinical history: . 5 SAMPLES . 01 Diagnosis: RIGHT BREAST AT 12 O'CLOCK 4 CM FROM NIPPLE: Multifocal (multiple foci of 0.1 cm) atypical ductal hyperplasia (ADH). Please see comment. BLAS 03/05/2025 1358 Local . 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 . This case was also reviewed by Dr. Yany Brown (Julie), who agrees with the interpretation. . 01 Electronically signed: . Radha Tran MD, Pathologist NPI- [id number] . 01 Gross description: . Received in formalin with two identifiers and Rt. breast 12 o'clock 4 cm FN, are multiple fragments of yellow to chau soft tissue admixed with a small amount of hemorrhagic material aggregating to 1.5 x 1.2 x 0.2 cm. Filtered, inked green, and submitted entirely in cassette A1. . The specimen was removed on 03/01/2025. Time not provided. Cold ischemic time cannot be calculated. Total fixation time is approximately 52 hours. ([id number]) /BLAS 03/02/2025 2144 Local . 01 Microscopic: . Immunohistochemical stains for ER and CK56 are performed to evaluate for block reactivity. The control stained with appropriate reactivity. . RESULTS: Block A1 ER: Strongly positive in region of interest. CK56: Decreased in region of interest. . The decreased staining of CK56 and strong ER staining in the focus of interest supports an interpretation of atypical ductal hyperplasia in this biopsy. . . * This test was developed and the performance characteristics were validated by [facility]. It has not been cleared or approved by the U.S. Food and Drug Administration. . 01 Pathologist provided ICD-10: N63.10 . 01 CPT . 589807, X07717, A05538 Specimen Comment: A courtesy copy of this report has been sent to [phone] Performed at: [address] [id number] MD Aravind Rosas MD Phone: [phone]
== END ==
LOC: US 09:51
PROVIDERS: PCP Family Medicine; Referring Provider Family Medicine; Visit Provider Family Medicine
DX: N60.91 Unspecified benign mammary dysplasia of right breast (principal); N63.15 Unspecified lump in the right breast, overlapping quadrants; R92.321 Mammographic fibroglandular density, right breast
CPT/HCPCS: 19083; 77065

== ENCOUNTER → 2025-03-20 08:47 | Outpatient (CLI) | payer OTHER, SELFPAY ==
--- NOTE | 2025-03-20 08:51 | DI.MG.S_ITS ---
MM needle loc RT: 03/20/2025. CLINICAL: 59-year old female for right procedure that resulted from diagnostic mammogram on 02/05/2025. Tyrer-Cuzick lifetime risk of 4.4%. No personal or first-degree family history of breast cancer. The patient had a prior right breast biopsy. The patient is status-post reduction mammoplasty. PRIOR EXAMS: Comparison is made with relevant prior imaging in PACS including the most recent: CONSENT Risks including but not limited to bleeding and infection, benefits and alternatives were discussed with the patient. The patient agreed to the procedure and signed informed consent. Time out procedure was used. ROUTINE Right: Patient positioned in the supine or supine-oblique position, prepped and draped in the usual manner using sterile technique. TECHNIQUE Right Breast: Upper at 12:00: Procedure: Mammographically-guided needle-wire localization of a mass. Device: Needle-wire assembly. Approach: Inferior/Lateral. Anesthesia: Local anesthesia obtained using 8 ml 1%-lidocaine. Skin Entry: Direct. Conclusion: Mammographically-guided Needle-wire localization with post-procedure CC and ML mammographic views. COMPLICATIONS: No complications were encountered while the patient was in our department. DISPOSITION The patient tolerated the procedure well. CC and Lateral images of the breast were obtained and sent to the OR with the patient. SUMMARY Right Breast: Upper at 12:00: Mammographically-guided needle-wire localization of a mass. ELECTRONICALLY SIGNED: Kelechi Marr M.D. on 03/22/2025 at 04:57:10 PM PT Interpreting Station ID: [id number]
--- NOTE | 2025-03-20 09:10 | DI.MG.S_ITS ---
MM surgical specimen RT: 03/20/2025. CLINICAL: 59-year old female for exam. PRIOR EXAMS Mammogram(s): 03/01/2025, 02/05/2025. Breast Ultrasound(s): 02/05/2025. Breast Procedure(s): 03/01/2025. Four Other Exams on 01/05/2025, 11/24/2022, 09/25/2021, 04/21/2020. ELECTRONICALLY SIGNED: Kelechi Marr M.D. on 03/22/2025 at 04:57:43 PM PT Interpreting Station ID: [id number]
== END ==
LOC: MAMMO 08:50
PROVIDERS: PCP Family Medicine; Referring Provider Surgery; Visit Provider Surgery
DX: N60.91 Unspecified benign mammary dysplasia of right breast (principal)
CPT/HCPCS: 19281; 76098; C1819

== ENCOUNTER 2025-03-20 08:51 | Day surgery (SDC) | payer OTHER, SELFPAY ==
[2025-03-18 08:50] VITALS: BMI 25.7
[2025-03-20] VITALS (7 sets, daily range): BP systolic 105–145; BP diastolic 73–88; PULSE 66–87; RESP 12; TEMP 36.1–36.4; O2SAT 96–100; BMI 26.1
--- NOTE | 2025-03-20 | PATH_ITS ---
[facility] Accession Number: [id number] No. of containers..01 Tissue . 01 Material submitted: . breast - RIGHT BREAST . 01 Clinical history: . GREEN- ANTERIOR, BLUE- INFERIOR, ORANGE- LATERAL . 01 Diagnosis: RIGHT BREAST, LUMPECTOMY: Ductal carcinoma in situ, see synoptic summary below. Background scattered, discontinuous atypical ductal hyperplasia. Negative for invasive carcinoma. . Procedure: Excision. Specimen Laterality: Right. Histologic Type: Ductal carcinoma in situ. Size/Extent: 5 mm. Architectural Patterns: Micropapillary and cribriform (focal). Nuclear Grade: Grade 1 (low). Necrosis: Not identified. Margin Status: All margins negative for DCIS. -Distance from DCIS to Closest Margin: 1 mm from lateral margin. Regional Lymph Node Status: Not applicable (no regional lymph nodes submitted or found). Distant Metastases: Not applicable. Pathologic Stage Classification (pTNM, AJCC 8th Edition): pTis pN(not assigned). Additional Findings: Biopsy site changes, biopsy clip, and duct ectasia. Biomarkers: -ER: Positive (99%, strong). -AR: Positive (90%, strong). [facility] 03/28/2025 1647 Local . 01 Comment: Immunohistochemistry for cytokeratin 5/6 and ER is performed on blocks A4, A5, A6, and A7. Blocks A4, A5, and A6 show focal abnormal staining in discontinuous, scattered ducts, consistent with atypical ductal hyperplasia. Block A7 also shows abnormal staining in a 5 mm focus of continuous ducts, consistent with ductal carcinoma in situ. . The results were communicated to MULUGETA Leary, at Dr. Atwood's office on 03/28/2025 at 4:40 pm. . As part of ongoing research quality assurance specialist, this case was reviewed by Dr. Yany Brown, who agrees with the interpretation. . - Technical Note: The immunohistochemical stains reported were performed with appropriate controls at [facility] ([address], [facility] [address]). This test was developed and performance characteristics validated by [facility]. It has not been cleared or approved by the Food and Drug Administration. . 01 Electronically signed: . Delisa Batista DO, Pathologist NPI- [id number] . 01 Gross description: . Received: In formalin with two identifiers and right breast tissue. Specimen: A previously inked right lumpectomy. Weight: 15 grams. Measurement: 4.0 cm anterior to posterior, 3.9 cm medial to lateral, and 2.7 cm superior to inferior. Skin ellipse: Absent. Wire: Present, penetrating anterosuperiorly and terminating anteroinferiorly. Margins: Inked by the surgeon: Green anterior, blue inferior, orange lateral, yellow medial, black posterior, red superior, per the operative note. Inking reinforced at the bench. Sliced: From anterior to posterior into eight slices. Lesion: One lesion identified. Description: An ill-defined chau to pale yellow firm lesion. Size: 1.1 x 1.0 x 0.6 cm. Slices involved: Slices 4 and 5. Biopsy site: A cylindrical biopsy clip is found within slice 4. Distance from margins: The mass grossly involves the orange and red margins, 1.0 cm from the blue margin, and is greater than 1 cm from all remaining margins. Other: The remaining cut surfaces are yellow to white fibroadipose tissue with less than 10% fibrous tissue. [place] [employer] sections are submitted as follows: A1: Rep slice 1, green margin perpendicular. A2-A3: Composite slice 3, no lesion. A4-A5: Composite slice 4, with lesion and biopsy site. A6-A7: Composite slice 5, with lesion. A8-A9: Composite slice 6, no lesion. A10: Rep slice 8, black margin perpendicular. Note: The entire lesion is submitted. Fixation: The specimen was removed on 03/20/2025, time not provided. Cold ischemic time cannot be calculated. Total fixation time is approximately 65 hours following additional fixation. ([id number]) /MRV 03/21/2025 1823 Local . 01 Pathologist provided ICD-10: D05.11 . 01 CPT . 791200, V29806, O95569, 356776 Specimen Comment: A courtesy copy of this report has been sent to [phone] Performed at: [address] [id number] MD Aravind Rosas MD Phone: [phone]
[2025-03-20] MEDS: ACETAMINOPHEN 325 MG TABLET 975 MG PO (12:39)
[2025-03-20] MEDS: LACTATED RINGERS 1,000 ML 42 ML IV (12:39)
--- NOTE | 2025-03-20 12:54 | PM.PREOP ---
Pre-operative Note COVID-19 COVID-19 status: Not tested Interval Note History & Physical reviewed/Exam performed by Physician: Yes Changes to H&P: No ASA Class (for procedural sedation): II
--- NOTE | 2025-03-20 13:24 | SUR.OPER ---
Supine on padded OR bed, head on pillow, arms secured on padded arm boards at <90 degrees abduction, legs uncrossed, safety belt at thigh, tape over blanket over lower legs.
[2025-03-20] MEDS: BUPIVACAINE 0.5% W/ EPI (PF) 30 ML VIAL INJ (13:42)
--- NOTE | 2025-03-20 14:08 | PM.OP.1 ---
Operative Date/Time/Diagnoses Date of procedure: 03/20/25 Time of procedure: 14:09 Pre-op diagnosis: Right atypical ductal hyperplasia Post-op diagnosis: same Procedure & Clinicians Procedure: Right breast wire localization lumpectomy Same procedure as scheduled: Yes Surgeon: Yehuda Atwood Senior Vice President & General Counsel: Sumeet Diaz Anesthesia Type: General Operative Notes Procedure in detail: The patient had a wire localization performed at Radiology prior to arrival in the perioperative area. The patient was brought to the operating room, placed on the table in the supine position, and anesthesia was induced. Arms were abducted on arm boards. The right breast was prepped and draped in the usual fashion. A time-out was performed. We made a 6 cm incision along the superior the areolar border. We created flaps superior to the incision and then dissected down to the chest wall keeping the wire within the center portion of specimen. We reached pectoral fascia at the deepest aspect of the dissection. The specimen was excised with the wire intact. The specimen was sent to Radiology for specimen mammogram. We then irrigated the wound cavity with sterile saline. Local anesthetic was injected into the muscle layer of the lumpectomy site. A few bleeders were cauterized. Once the wound cavity was hemostatic we injected some local anesthetic into the dermis and closed the incision in layers using multiple interrupted 3-0 Vicryl dermal sutures followed by a running 4-0 Monocryl subcuticular closure. Radiology called the OR reporting that the clip was visualized within the specimen. Steri-Strips were applied followed by dry gauze and a breast binder. EBL: 10 mL Specimen: Right breast tissue Sumeet CARTAGENA provided assistance with exposure, retraction and closure of incisions. Post-operative Condition: stable Disposition: PACU
== END 2025-03-20 15:13 | disposition home or self-care (01) ==
PROVIDERS: PCP Family Medicine; Referring Provider Surgery; Visit Provider Surgery
PROC: (CPT 19125; principal; 2025-03-20 12:45)
DX: D05.11 Intraductal carcinoma in situ of right breast (principal); Z17.0 Estrogen receptor positive status [ER+]; Z17.21 Progesterone receptor positive status
CPT/HCPCS: 19125; 19281; 76098; C1819; J1100; J1885; J2250; J2405; J2704; J3010

== ENCOUNTER 2025-04-10 13:48 | Day surgery (SDC) | payer OTHER, SELFPAY ==
[2025-04-02 08:50] VITALS: BMI 26.0
--- NOTE | 2025-04-10 | PATH_ITS ---
[facility] Accession Number: [id number] No. of containers..02 Tissue . 01 Material submitted: . PART A: breast - RIGHT BREAST NEW LATERAL SUPERIOR MARGIN PART B: breast - RIGHT BREAST NEW LATERAL INFERIOR MARGIN . 01 Clinical history: . A: SHORT STITCH-SUPERIOR, LONG STITCH-LATERAL B: SHORT STITCH-SUPERIOR, LONG STITCH-LATERAL . 01 Diagnosis: A. RIGHT BREAST NEW LATERAL SUPERIOR MARGIN: Negative for residual ductal carcinoma in situ. Histologic changes consistent with previous instrumentation. . B. RIGHT BREAST NEW LATERAL INFERIOR MARGIN: Negative for residual ductal carcinoma in situ. Histologic changes consistent with previous instrumentation. MRV 04/19/2025 1207 Local . 01 Comment: Parts of this case (A3-4) were also reviewed by Dr. Susana Pedroza, who agrees with the interpretation. . 01 Electronically signed: . Radha Tran MD, Pathologist NPI- [id number] . 01 Gross description: . A. Received: In formalin with two identifiers and right breast, new lateral superior margin (short stitch superior, long stitch lateral), is a fragment of fibroadipose tissue with a single suture. Per the operative report, the specimen was marked with a silk stitch superiorly with no mention of a second suture contradicting the requisition which states short superior long lateral. The specimen weights 2 grams and measures 3.6 x 0.9 cm and 1.6 cm from superior to inferior. The fragment is flat with a slightly concave and convex surface and the suture is located on one edge of the specimen. The concave surface is pale yellow and smooth consistent with seroma cavity. The concave surface with seroma cavity is inked black, and the superior half of the convex surface is inked blue while the inferior half of the convex surface is inked orange. The specimen is serially sectioned into nine slices to reveal a pale yellow cut surface consistent with surgical site changes. No lesions or masses are identified, and the specimen is submitted entirely as follows: A1: Slice 1 perpendicular. A2-A3: Central sequential slices. A4: Slice 9 perpendicular. . The specimen was removed on 04/10/2025, time not provided. Cold ischemic time cannot be calculated. Total fixation time is approximately 65 hours. . B. Received in formalin with two identifiers and right breast new lateral inferior margin (short stitch superior, long stitch lateral), is an oriented excised margin of breast tissue weighing 3 grams. A single suture is identified at one edge of the specimen. Per the operative report, ellipses a silk stitch superiorly. with no indication of a second suture. One aspect of the specimen is pale yellow and smooth, consistent with seroma cavity, while the opposite surface is convex and roughened, consistent with additional margin. The concave surface is inked black and the convex surface is inked superior half blue, inferior half orange. The specimen measures 3.4 x 0.8 cm and 2.7 cm from superior to inferior. The specimen is serially sectioned into seven slices to reveal a pale yellow cut surface consistent with surgical site changes. No lesions or masses are identified. The specimen is submitted entirely as follows: B1: Slice 1 perpendicular. B2-B3: Remaining central slices. B4: Slice 7 perpendicular. . The specimen was removed on 04/10/2025, time not provided. Cold ischemic time cannot be calculated. Total fixation time is approximately 65 hours. ([id number]) /MRV 04/12/2025 1255 Local . 01 Microscopic: . An immunohistochemistry panel is performed to further evaluate the cells of interest. The control stains show appropriate reactivity. . RESULTS: Blocks A3-A4, B3 ER: Variable staining. CK5/6: Mosaic staining pattern present. . These histologic findings are most consistent with usual ductal hyperplasia and mitigate against the presence of ductal carcinoma in situ. . * This test was developed and the performance characteristics were validated by [facility]. It has not been cleared or approved by the U.S. Food and Drug Administration. . 01 Pathologist provided ICD-10: D05.01 . 01 CPT . 681848, 850605, P57727, R78137 Specimen Comment: A courtesy copy of this report has been sent to [phone] Performed at: [address] [facility], [place], [place] [id number] MD Aravind Rosas MD Phone: [phone]
[2025-04-10 15:02] VITALS: BP 100/63; PULSE 57; RESP 16; TEMP 36.1; O2SAT 100; BMI 25.3
--- NOTE | 2025-04-10 15:11 | PM.PREOP ---
Pre-operative Note COVID-19 COVID-19 status: Not tested Interval Note History & Physical reviewed/Exam performed by Physician: Yes Changes to H&P: No ASA Class (for procedural sedation): II
[2025-04-10] MEDS: FAMOTIDINE 20 MG/2 ML VIAL IV (15:37)
[2025-04-10] MEDS: LACTATED RINGERS 1,000 ML 42 ML IV (15:37)
[2025-04-10] MEDS: ACETAMINOPHEN 325 MG TABLET 975 MG PO (15:38)
--- NOTE | 2025-04-10 16:34 | SUR.OPER ---
Supine on padded OR bed, head on pillow, arms secured on padded arm boards at <90 degrees abduction, legs uncrossed, safety belt at thigh, tape over blanket over lower legs.
[2025-04-10] MEDS: BUPIVACAINE 0.5% W/ EPI (PF) 30 ML VIAL INJ (16:54)
--- NOTE | 2025-04-10 16:54 | P.OP_ITS ---
Operative Date/Time/Diagnoses Date of procedure: 04/10/25 Time of procedure: 16:55 Pre-op diagnosis: Right breast ductal carcinoma in-situ Post-op diagnosis: same Procedure & Clinicians Procedure: Re-excision of lateral margin from right breast lumpectomy cavity Same procedure as scheduled: Yes Surgeon: Yehuda Atwood Tile Picker: Sumeet Diaz Anesthesia Type: General Operative Notes Findings: Breast tissue Estimated Blood Loss (mL): 10 Procedure in detail: The patient is a 59-year-old woman who recently underwent right breast lumpectomy for atypical ductal hyperplasia and was found to have incidental ductal carcinoma in-situ. The incidental ductal carcinoma in-situ came to within 1 mm of the lateral margin. She was consented for re-excision of margins for ductal carcinoma in-situ. The patient was brought to the operating room and placed on the table in the supine position with the right arm abducted. The right breast was prepped and draped in the usual fashion. A time-out was performed. We made an incision through the old surgical scar and entered the seroma cavity. We aspirated the seroma. We then reexcised the lateral margin in 2 segments. First we reexcised the superior lateral portion using cautery. This was marked with a silk stitch superiorly. We then excised the lateral inferior margin and placed a silk stitch superiorly. Finally we injected some local into the chest wall and surrounding subcutaneous adipose tissue and dermis. We closed the incision in layers using multiple interrupted 3-0 Vicryl dermal sutures followed by a running 4-0 Monocryl subcuticular stitch. EBL: 10 mL Specimens: New right lateral superior margin and new right inferior margin Sumeet CARTAGENA provided assistance with exposure, retraction and closure of incisions. Complications: none Post-operative Condition: stable Disposition: PACU
[2025-04-10 17:05] VITALS: BP 108/65; PULSE 105; RESP 12; TEMP 36.3; O2SAT 100
[2025-04-10 17:11] VITALS: BP 118/71; PULSE 107; RESP 18; TEMP 36.3; O2SAT 100
[2025-04-10 17:18] VITALS: BP 122/74; PULSE 103; RESP 12; TEMP 36.3; O2SAT 100
[2025-04-10 17:23] VITALS: BP 119/81; PULSE 103; RESP 15; TEMP 36.3; O2SAT 99
== END 2025-04-10 17:37 | disposition home or self-care (01) ==
PROVIDERS: PCP Family Medicine; Referring Provider Surgery; Visit Provider Surgery
PROC: (CPT 19301; principal; 2025-04-10 16:00)
DX: D05.11 Intraductal carcinoma in situ of right breast (principal); M96.843 Postprocedural seroma of a musculoskeletal structure following other procedure
CPT/HCPCS: 19301; J1100; J2250; J2405; J2704; J3010

== ENCOUNTER → 2025-11-19 07:38 | Outpatient (CLI) | payer OTHER, SELFPAY ==
[2025-11-19 08:18] LABS: Add Manual Diff / Slide Review NO; Hematocrit 36.7 % (36-46); Hemoglobin 12.9 g/dL (12.0-16.0); Lymphocytes Absolute Auto 1800 /uL (1100-4500); Mean Corpuscular HGB Conc 35.0 % (30-36); Mean Corpuscular Hemoglobin 33.1 PG (26-34); Mean Corpuscular Volume 94.4 fL (80-100); Platelet Count 296 X10^3/uL (150-400)
[2025-11-19 08:42] LABS: Alanine Aminotransferase 10 IU/L (<35); Albumin 4.0 g/dL (3.5-5.0); Albumin Globulin Ratio 1.6 (1.0-2.8); Alkaline Phosphatase 57 U/L (38-126); Blood Urea Nitrogen 16 mg/dL (7-17); Calcium 8.8 mg/dL (8.4-10.2); Carbon Dioxide 27 mmol/L (22-32); Chloride 108 mmol/L (98-107); Cholesterol 134 mg/dL (140-199); Estimated Glomerular Filt Rate > 60 mL/min (>60); Globulin 2.5 g/dL (1.7-4.1); Glucose 91 mg/dL (70-99); HDL Cholesterol 68 mg/dL (40-60); HEMOLYSIS < 15 (0-50); Potassium 4.1 mmol/L (3.4-5.1); Sodium 140 mmol/L (137-145); Total Protein 6.5 g/dL (6.3-8.2); Triglycerides 84 mg/dL (35-150)
[2025-11-19 08:50] LABS: Vitamin D 25 Hydroxy (D3) 81.9 ng/mL (30.0-100.0)
[2025-11-19 09:04] LABS: TSH w/ Reflex to FT4 0.86 uIU/mL (0.47-4.68)
== END ==
PROVIDERS: PCP Family Medicine; Referring Provider Family Medicine; Visit Provider Family Medicine
DX: E03.9 Hypothyroidism, unspecified (principal); E55.9 Vitamin D deficiency, unspecified; E78.2 Mixed hyperlipidemia
CPT/HCPCS: 36415; 80053; 80061; 82306; 84443; 85025